=== PATIENT | male | born 1985 | race Two or more races ===

== ENCOUNTER 2020-08-31 21:24 | Observation (INO) | payer OTHER ==
[2020-08-31] MEDS ORDERED: HYDROmorphone 0.5 MG/0.5 ML SYRINGE IVP STA (21:27)
[2020-08-31] MEDS ORDERED: SODIUM CHLORIDE 0.9% 1,000 ML IV STA (21:28)
--- NOTE | 2020-08-31 21:29 | ED ---
General Adult HPI - General Stated complaint: ABD pain Time Seen by Provider: 08/31/20 21:27 - History of Present Illness Initial comments: Dictation was produced using [employer] dictation software. please excuse any grammatical, word or spelling errors. This patient was cared for during a federal and state declared state of emergency secondary to Covid 19 Chief Complaint: 34-year-old male transferred from [facility] for acute appendicitis History of Present Illness: 34-year-old male presents to the emergency department from [facility] emergency department for acute appendicitis. Patient has been having right lower quadrant symptoms and abdominal pain today. He had a computed tomography scan at [facility] showing acute appendicitis. White count 12.3. Patient no history of abdominal surgery. Last oral intake was around 1 AM today. Patient was started on Zosyn The ROS documented in this emergency department record has been reviewed and confirmed by me. Those systems with pertinent positive or negative responses have been documented in the HPI. All other systems are other negative and/or noncontributory. PHYSICAL EXAM: General Impression: Alert and oriented x3, acute distress secondary to pain HEENT: Normocephalic atraumatic, extra-ocular movements intact, pupils equal and reactive to light bilaterally, mucous membranes moist. Cardiovascular: Heart regular rate and rhythm Chest: Able to complete full sentences, no retractions, no tachypnea Abdomen: abdomen soft, right lower quadrant abdominal tenderness at McBurney's point non-distended, no organomegaly Musculoskeletal: Pulses present and equal in all extremities, no peripheral edema Motor: no focal deficits noted Neurological: CN II-XII grossly intact, no focal motor or sensory deficits noted Skin: Intact with no visualized rashes Psych: Normal affect and mood ED course: 34-year-old male presents to the emergency department from [facility] via EMS for acute appendicitis. Case was discussed with Dr. Cruz requests that patient be nothing by mouth at midnight. She is allowable for clear liquids until midnight. Patient be admitted to general surgery. - Related Data Allergies Allergy/AdvReac Type Severity Reaction Status Date / Time No Known Allergies Allergy Verified 08/31/20 21:30 Review of Systems ROS Statement: Those systems with pertinent positive or pertinent negative responses have been documented in the HPI. ROS Other: All systems not noted in ROS Statement are negative. Course Vital Signs 08/31/20 21:26 Temperature 99.4 F Pulse Rate 59 L Respiratory 16 Rate Blood Pressure 118/96 O2 Sat by Pulse 97 Oximetry Disposition Clinical Impression: Acute appendicitis Disposition: ADMITTED IP TO THIS HOSP Condition: Fair Referrals: None,Stated [Primary Care Provider] - 1-2 days Decision Time: 21:33
[2020-08-31] MEDS ORDERED: ACETAMINOPHEN TAB 325 MG TAB PO PRN (21:31)
[2020-08-31] MEDS ORDERED: ONDANSETRON 4 MG/2 ML VIAL IVP PRN (21:31)
[2020-08-31] MEDS ORDERED: NALOXONE 0.4 MG/ML 1 ML VIAL IV PRN (21:31)
[2020-08-31] MEDS ORDERED: LORazepam 2 MG/ML INJ IV STA (22:31)
[2020-08-31] MEDS: HYDROmorphone 0.5 MG/0.5 ML SYRINGE IVP PRN (23:00)
[2020-09-01] MEDS: ACETAMINOPHEN TAB 500 MG TAB PO SCH ×3 (00:39→11:01)
[2020-09-01] MEDS: PIPERACILLIN-TAZOBACTAM 3.375 GM in SODIUM CHLORIDE 0.9% 100 ML IVPB SCH ×2 (00:39→09:31)
[2020-09-01] MEDS: KETOROLAC 15 MG/ML 1 ML VIAL IVP SCH ×3 (00:40→11:01)
[2020-09-01] MEDS: HYDROmorphone 0.5 MG/0.5 ML SYRINGE IVP PRN ×3 (03:19→11:04)
--- NOTE | 2020-09-01 07:27 | P.GSHP ---
History of Present Illness H&P Date: 09/01/20 CHIEF COMPLAINT: Right lower quadrant abdominal pain with appendicitis for less than 1 day. HISTORY OF PRESENT ILLNESS: The patient is a previously healthy 34-year-old male who presents with less than 1 devin history of periumbilical with right lower quadrant abdominal pain that is crampy dull ache in nature. No reports of prior abdominal pain. He states the intensity of the pain is moderate. He presented with CT abdomen and pelvis consistent with dilated appendix suspicious for appendicitis hence general surgery admission. He was transferred from outside facility for surgical intervention. PAST MEDICAL HISTORY: See list. PAST SURGICAL HISTORY: See list. CURRENT MEDICATIONS: See list. ALLERGIES: See list. SOCIAL HISTORY: See list. FAMILY HISTORY: No Crohns disease and ulcerative colitis. REVIEW OF ORGAN SYSTEMS: CONSTITUTIONAL: Present fever, no chills. Denies recent weight loss. HEENT: Denies any trouble with vision, hearing or nosebleeds. No difficulty swallowing. Wears glasses. LYMPHATIC: The patient denies any lumps and bumps around the neck. ENDOCRINE: Denies any thyroid disorders. Denies any blood sugar glucose intolerance. RESPIRATORY: Denies shortness of breath including chronic cough. CARDIOVASCULAR: Denies history of chest pain with exertion. GASTROINTESTINAL: Denies regurgitation of bile at night as well as intermittent nausea. No blood in stools. GENITOURINARY: Denies any blood in urine or increased urinary frequency. MUSCULOSKELETAL: Denies current joint arthritis. NEUROLOGIC: Denies any numbness or tingling along the distal extremities. No seizure disorders or headaches. PSYCHIATRIC: Denies any depression or suicidal ideation. HEMATOLOGIC: Denies any abnormal bleeding or bruising. PHYSICAL EXAMINATION: VITALS: Reviewed. GENERAL: Pleasant and in no acute distress. HEENT: No sclera icterus. Extraocular movements grossly intact. Moist buccal mucosa. Head is atraumatic, normocephalic. Hears conversational speech. No nasal drainage. NECK: Supple without lymphadenopathy. No JV distention. CHEST: Non-labored respirations and equal bilateral excursions. CARDIOVASCULAR: Regular rate and rhythm. Palpable 2+ radial pulses. ABDOMEN: Soft, tender at the right lower quadrant without guarding. MUSCULOSKELETAL: No clubbing, cyanosis or edema. NEUROLOGIC: No focal or lateralizing signs. PSYCH: Appropriate affect. Alert and oriented to person, place and time. SKIN: Well perfused. Good skin turgor. ASSESSMENT: 1. Appendicitis PLAN: 1. I have discussed benefits and risks of robotic appendectomy. 2. I ordered CBC and comprehensive metabolic panel pending a repeat. 3. DVT prophylaxis with sequential compressive devices and heparin 4. Intravenous antibiotics for appendicitis Past Medical History Past Medical History: No Reported History History of Any Multi-Drug Resistant Organisms: None Reported Past Surgical History: No Surgical Hx Reported Past Psychological History: No Psychological Hx Reported Smoking Status: Current every day smoker Past Alcohol Use History: Occasional Past Drug Use History: Marijuana Medications and Allergies Home Medications Medication Instructions Recorded Confirmed Type Acetaminophen Tab [Tylenol] 1,300 mg PO ONCE PRN 08/31/20 08/31/20 History Allergies Allergy/AdvReac Type Severity Reaction Status Date / Time No Known Allergies Allergy Verified 09/01/20 07:42 Surgical - Exam Vital Signs Temp Pulse Resp BP Pulse Ox 99.4 F 59 L 16 118/96 97 08/31/20 21:26 08/31/20 21:26 08/31/20 21:26 08/31/20 21:26 08/31/20 21:26
[2020-09-01] MEDS ORDERED: IV FLUID CONTINUATION 1,000 ML IV ONE (07:37)
[2020-09-01] MEDS ORDERED: LACTATED RINGERS 1,000 ML IV ONE (07:49)
[2020-09-01] MEDS ORDERED: HEPARIN SODIUM,PORCINE 5,000 UNIT/ML 1 ML VIAL ONE (07:57)
[2020-09-01] MEDS ORDERED: ONDANSETRON 4 MG/2 ML VIAL IVP ONE (08:01)
[2020-09-01] MEDS ORDERED: HEPARIN SODIUM,PORCINE 5,000 UNIT/ML 1 ML VIAL SQ ONE (08:02)
[2020-09-01] MEDS ORDERED: DEXAMETHASONE SOD PHOSPHATE 4 MG/ML 1 ML VIAL IVP ONE (08:02)
[2020-09-01] MEDS ORDERED: PROPOFOL 10 MG/ML 20 ML VIAL IV ONE (08:46)
[2020-09-01] MEDS ORDERED: KETOROLAC 15 MG/ML 1 ML VIAL ONE (08:46)
[2020-09-01] MEDS ORDERED: GLYCOPYRROLATE 0.2 MG/ML 2 ML VIAL ONE (08:46)
[2020-09-01] MEDS ORDERED: LIDOCAINE 1% INJ 10MG/ML (20 ML MDV) ONE (08:46)
[2020-09-01] MEDS ORDERED: fentaNYL (PF) 50 MCG/ML 2 ML AMP ONE (08:46)
[2020-09-01] MEDS ORDERED: ALBUTEROL HFA INHALER INHALATION ONE (08:46)
[2020-09-01] MEDS ORDERED: SUCCINYLCHOLINE CHLORIDE 100 MG/5 ML SYR IV ONE (08:46)
[2020-09-01] MEDS ORDERED: ROCURONIUM 10 MG/ML (5 ML VIAL) IV ONE (08:46)
[2020-09-01] MEDS ORDERED: MIDAZOLAM 2 MG/2 ML VIAL ONE (08:46)
[2020-09-01] MEDS ORDERED: NEOSTIGMINE 1 MG/ML 10 ML VIAL ONE (08:46)
[2020-09-01] MEDS ORDERED: BUPIVACAIN-EPI 0.5%-1:200,000 30 ML VIAL SQ ONE ×2 (09:03→09:08)
[2020-09-01 09:20] LABS: Basophils # (A) 0.03 X 10*3/uL (0.00-0.10); Basophils % (A) 0.3 %; Eosinophils # (A) 0.27 X 10*3/uL (0.04-0.35); Eosinophils % (A) 2.6 %; HCT 44.6 % (39.6-50.0); HGB 15.3 g/dL (13.0-17.0); Lymphocytes # (A) 1.95 X 10*3/uL (0.90-5.00); Lymphocytes % (A) 18.5 %; MCH 31.7 pg (27.0-32.0); MCHC 34.3 g/dL (32.0-37.0); MCV 92.5 fL (80.0-97.0); Mean Platelet Volume 10.6 fL (9.5-12.2); Monocytes # (A) 0.99 X 10*3/uL (0.20-1.00); Monocytes % (A) 9.4 %; Neutrophils # (A) 7.25 X 10*3/uL (1.80-7.70); Neutrophils % (A) 68.8 %; Platelet Count 171 X 10*3/uL (140-440); RBC 4.82 X 10*6/uL (4.40-5.60); RDW 12.4 % (11.5-14.5); WBC 10.53 X 10*3/uL (4.50-10.00)
[2020-09-01] MEDS ORDERED: NALOXONE 0.4 MG/ML 1 ML VIAL IV PRN (09:53)
--- NOTE | 2020-09-01 09:57 | P.OP ---
Date of Procedure: 09/01/20 Description of Procedure: SURGEON: DAVION KRAUS MD Preoperative Diagnosis: 1. Acute appendicitis 2. Tobacco abuse disorder 3. Poor dentition 4. Leukocytosis Postoperative Diagnosis: 1. Acute appendicitis, retrocecal with periappendicitis without free rupture 2. Tobacco abuse disorder 3. Poor dentition 4. Leukocytosis Procedure(s) Performed: 1. Robotic-assisted daVinci Xi laparoscopic appendectomy Anesthesia: GETA, local Estimated Blood Loss (ml): 5 Pathology: other (appendix) Condition: stable Disposition: floor Operative Findings: 1. Acute appendicitis without rupture with periappendicitis, retrocecal 2. Terminal ileum unremarkable 3. Cecum unremarkable 4. No bilateral inguinal hernias 5. Thickened gallbladder wall INDICATIONS: The patient is a 34-year-old male who presents with acute appendicitis. Benefits and risks, including infection, open surgery, and ble eding for additional surgery was discussed at length. Informed consent was obtained. All questions of the patient and family were answered. DESCRIPTION: The patient was transferred to the operating room and placed in supine position. The patient had previously voided. The abdomen was then prepped and draped in standard sterile fashion as Ioban was placed along the abdomen to minimize any contamination of skin floor. After a timeout protocol was performed, attention was then brought to the left upper quadrant whereby a 0 degree 5 mm laparoscopic trocar entry was performed. The abdominal cavity was entered and insufflated to 12 mmHg pressure, which was tolerated well. Diagnostic laparoscopy demonstrated no injury to bowel, viscera or mesentery. Next a robotic 8-mm trocar was placed along the left lower quadrant, 10-cm lateral to the midline. A 12 mm port was placed along the left upper quadrant and another 8-mm port left lateral abdominal wall. Ports were placed 8 cm apart from each other including 15-20 cm away from the target anatomy of the right pelvis. The patient was then placed in Trendelenburg position, at least 7 down and right side up at least 7. The robotic da Atul XI system was primed and docked from the left side of the patient. Using atraumatic graspers and vessel sealer, the robotic system was docked and primed as described. Instruments were interchanged by the internet marketing assistant including graspers, robotic stapler and vessel sealer. Next, attention was brought to identify the cecum. A systematic view within the abdominal cavity was started with the small bowel which was unremarkable. The base of the cecum was unremarkable. The bilateral inguinal canals were unremarkable for hernias. The appendix was retrocecal coursing towards right upper quadrant behind the ascending colon with additional dissection required. The body of the appendix was moderately dilated with moderate periappendicitis. No perforation was identified. The appendix was dissected free from its surrounding tissues. Blue 45 mm robotic staple loads were fired along the base of the appendix. The staple line was hemostatic after applying Bovie cautery. Hemostasis was checked prior to undocking the robot. The robot was undocked. I re-scrubbed into the case. The specimen was removed from the abdominal cavity with an Endo Catch bag through the 12 mm trocar at the left upper quadrant. The port site fascia was less than 8 mm in size. All instruments and pneumoperitoneum were evacuated from the abdominal cavity. Local anesthetic was infiltrated to all wounds for postop analgesia. All incisions were also cleansed with diluted hydrogen peroxide. The incisions were closed with 4-0 Monocryl. Exofin glue was applied to the rest of the skin incisions. The patient had tolerated the procedure well. The patient was extubated successfully. The patient was transferred to the postanesthesia care unit in stable condition.
[2020-09-01 10:09] VITALS: RESP 16
[2020-09-01 10:51] VITALS: TEMP 98
[2020-09-01 11:20] LABS: African American GFR (CKD) 114.1 (60.0-200.0); Albumin/Globulin Ratio 2.11 (1.60-3.17); Anion Gap 7.5 mmol/L (4.00-12.00); Carbon Dioxide 23.5 mmol/L (21.6-31.8); Globulin 1.9 g/dL (1.6-3.3); Non-African American GFR(CKD) 98.5 (60.0-200.0); Total Bilirubin 1.2 mg/dL (0.3-1.2); Total Protein 5.9 g/dL (6.2-8.2)
[2020-09-01] MEDS ORDERED: ACETAMINOPHEN TAB 500 MG TAB PO SCH (12:00)
[2020-09-01 13:39] VITALS: BP 134/77; PULSE 84
--- NOTE | 2020-09-01 13:43 | P.DS ---
Providers Date of admission: 08/31/20 21:32 Expected date of discharge: 09/01/20 Attending physician: Sully Levine Primary care physician: Stated None - Discharge Diagnosis(es) (1) Acute appendicitis Current Visit: Yes Status: Acute Hospital Course: Postoperative Diagnosis: 1. Acute appendicitis, retrocecal with periappendicitis without free rupture 2. Tobacco abuse disorder 3. Leukocytosis COURSE: The patient is a 34-year-old male who presented with acute appendicitis. He underwent robotic appendectomy without complications. Postoperatively, he was voiding spontaneously. His pain was well controlled. Additionally no reports of nausea and vomiting. He was maintained on IV antibiotics postoperatively. Discharge instructions were clearly reviewed. Patient to follow-up in the office within 1 week. All questions were addressed. Procedures: Procedure(s) Performed: 1. Robotic-assisted daVinci Xi laparoscopic appendectomy Anesthesia: GETA, local Estimated Blood Loss (ml): 5 Pathology: other (appendix) Condition: stable Disposition: floor Operative Findings: 1. Acute appendicitis without rupture with periappendicitis, retrocecal 2. Terminal ileum unremarkable 3. Cecum unremarkable 4. No bilateral inguinal hernias 5. Thickened gallbladder wall Patient Condition at Discharge: Good Plan - Discharge Summary Discharge Rx Participant: Yes New Discharge Prescriptions: New Ibuprofen [Motrin] 600 mg PO Q8HR PRN #30 tab PRN Reason: Pain Acetaminophen Tab [Tylenol Tab] 1,000 mg PO Q6HR PRN #30 tablet PRN Reason: Pain Continue Acetaminophen Tab [Tylenol] 1,300 mg PO ONCE PRN PRN Reason: Pain Discharge Medication List Acetaminophen Tab [Tylenol] 1,300 mg PO ONCE PRN 08/31/20 [History] Acetaminophen Tab [Tylenol Tab] 1,000 mg PO Q6HR PRN #30 tablet 09/01/20 [Rx] Ibuprofen [Motrin] 600 mg PO Q8HR PRN #30 tab 09/01/20 [Rx] Follow up Appointment(s)/Referral(s): Sully Levine MD [STAFF PHYSICIAN] - 09/05/20 5:00 pm None,Stated [Primary Care Provider] - 1-2 days Patient Instructions/Handouts: Laparoscopic Appendectomy (DC) Activity/Diet/Wound Care/Special Instructions: Using antibacterial soap. No lifting over 10 pounds 2 weeks, Feb 25 May shower. No bathtub soaks for 2 weeks, Sep 14 Wear abdominal binder daily for comfort except for showering. Use ice along incisions for today to prevent swelling. Discharge Disposition: HOME SELF-CARE
[2020-09-02] MEDS ORDERED: ENOXAPARIN 30 MG/0.3 ML SYRINGE SQ SCH (09:00)
== END 2020-09-01 15:00 | disposition home or self-care (01) ==
LOC: EC 21:24 → 6NMEDSUR 21:32 → 4SSUR 09-01 05:23
PROVIDERS: ADMIT Surgery Plastic and Reconstructive Surgery; ATTEND Surgery Plastic and Reconstructive Surgery
DX: K35.80 Unspecified acute appendicitis (principal); F17.200 Nicotine dependence, unspecified, uncomplicated; Z20.822 Contact with and (suspected) exposure to COVID-19
CPT/HCPCS: 44970; S2900; 80053; 85025; 87635; 88304; 96374; 96375; 96376; 99285

== ENCOUNTER 2020-11-10 17:50 | Inpatient (IN) | payer OTHER ==
[2020-11-10 18:38] LABS: HCT 48.7 % (39.0-53.0); HGB 17.4 gm/dL (13.0-17.5); MCH 32.6 pg (25.0-35.0); MCHC 35.7 g/dL (31.0-37.0); MCV 91.4 fL (80.0-100.0); Mean Platelet Volume 7.3; Neutrophils % (A) 62 %; Platelet Count 190 k/uL (150-450); RBC 5.32 m/uL (4.30-5.90); RDW 12.3 % (11.5-15.5); WBC 9.8 k/uL (3.8-10.6)
[2020-11-10 18:39] LABS: Basophils # (A) 0.1 k/uL (0-0.2); Basophils % (A) 1 %; Eosinophils # (A) 0.4 k/uL (0-0.7); Eosinophils % (A) 4 %; Lymphocytes # (A) 2.5 k/uL (1.0-4.8); Lymphocytes % (A) 26 %; Monocytes # (A) 0.6 k/uL (0-1.0); Monocytes % (A) 6 %; Neutrophils # (A) 6.1 k/uL (1.3-7.7)
[2020-11-10] MEDS ORDERED: SODIUM CHLORIDE 0.9% 2,000 ML IV ONE (18:43)
[2020-11-10] MEDS ORDERED: MORPHINE SULFATE 4 MG/ML SYRINGE IVP STA ×2 (18:43→18:44)
[2020-11-10] MEDS ORDERED: ONDANSETRON 4 MG/2 ML VIAL IVP STA (18:44)
[2020-11-10 18:48] LABS: ALT 39 U/L (4-49); AST 33 U/L (17-59); African American GFR (CKD) >90 (>60 ml/min/1.73 sqM); Albumin 4.3 g/dL (3.5-5.0); Alkaline Phosphatase 61 U/L (38-126); Anion Gap 9 mmol/L; Blood Urea Nitrogen 10 mg/dL (9-20); Calcium 8.9 mg/dL (8.4-10.2); Carbon Dioxide 25 mmol/L (22-30); Chloride 105 mmol/L (98-107); Glucose 89 mg/dL (74-99); Lipase 597 U/L (23-300); Non-African American GFR(CKD) >90 (>60 ml/min/1.73 sqM); Potassium 4.3 mmol/L (3.5-5.1); Sodium 139 mmol/L (137-145); Total Bilirubin 0.4 mg/dL (0.2-1.3); Total Protein 7.5 g/dL (6.3-8.2)
[2020-11-10] MEDS ORDERED: HYDROmorphone 1 MG/ML 1 ML SYRINGE IVP STA (19:32)
--- NOTE | 2020-11-10 19:43 | US ---
EXAMINATION TYPE: US gallbladder DATE OF EXAM: 11/10/2020 COMPARISON: EXAMINATION TYPE: US gallbladder DATE OF EXAM: 11/10/2020 COMPARISON: None CLINICAL HISTORY: abd pain. RUQ pain x 2 DAYS, Nausea and vomiting, diarrhea EXAM MEASUREMENTS: Liver Length: 14.3 cm Gallbladder Wall: 0.1 cm CBD: 0.3 cm Right Kidney: 10.3 x 6.4 x 5.1 cm Pancreas: Visualized portions normal. Body and tail obscured by bowel gas Liver: Normal. Gallbladder: No cholelithiasis, gallbladder wall thickening, or pericholecystic edema. Clinical Engineering Director reports positive sonographic De Los Santos sign. CBD: Normal. Right Kidney: No hydronephrosis. IMPRESSION: Clinical Engineering Director reports positive sonographic De Los Santos sign. However there are no other signs of acute pranav cystitis. Recommend correlation with physical exam. If there is clinical concern for acute cholecysti tis, recommend nuclear medicine HIDA scan.
[2020-11-10 20:32] LABS: Appearance,Urine Clear (Clear); Bilirubin,Urine Negative (Negative); Blood,Urine Negative (Negative); Color,Urine Yellow; Glucose,Urine (UA) Negative (Negative); Ketones,Urine Negative (Negative); Leukocyte Esterase,Urine Negative (Negative); Nitrite,Urine Negative (Negative); Protein,Urine Negative (Negative); Specific Gravity,Urine 1.022 (1.001-1.035); Urobilinogen,Urine <2.0 mg/dL (<2.0)
--- NOTE | 2020-11-10 21:04 | CT ---
EXAMINATION TYPE: CT abdomen pelvis w con DATE OF EXAM: 11/10/2020 COMPARISON: Same day gallbladder ultrasound HISTORY: PAIN CT DLP: 1404.9 mGycm Automated exposure control for dose reduction was used. TECHNIQUE: Helical acquisition of images was performed from the lung bases through the pelvis. CONTRAST: Performed without Oral Contrast and with IV Contrast, patient injected with 100 mL of Isovue 300. FINDINGS: LUNG BASES: Normal. LIVER: Normal. BILIARY SYSTEM: Normal. PANCREAS: Normal. SPLEEN: Normal. ADRENALS: Normal. KIDNEYS: Normal. BOWEL: No obstruction or thickening. Colonic diverticulosis. No acute diverticulitis. Patient appear s status post appendectomy. PERITONEUM: No pneumoperitoneum. No free fluid. LYMPH NODES: No lymphadenopathy. PELVIS: Normal. VASCULATURE: No abdominal aortic aneurysm. MUSCULOSKELETAL: No acute osseous normality. IMPRESSION: No acute findings to explain patient's abdominal pain.
[2020-11-10] MEDS ORDERED: NALOXONE 0.4 MG/ML 1 ML VIAL IV PRN (21:50)
--- NOTE | 2020-11-10 21:56 | ED ---
Abdominal Pain HPI - General Chief Complaint: Abdominal Pain Stated Complaint: Abd Pain Time Seen by Provider: 11/10/20 17:55 Source: patient Mode of arrival: ambulatory Limitations: no limitations - History of Present Illness Initial Comments: 35-year-old previously healthy male presents emergency room with right upper quadrant pain. Patient states that his pain started yesterday. Located in the right upper quadrant. Denies any provocative factors. States the pain has been constant. He has not attempted to take any medications at home for her symptoms. Has associated nausea, vomiting and diarrhea. Denies any sick contacts with similar symptoms. No fevers or chills. Denies history of alcohol use. Patient is status post appendectomy. No other alleviating, Perceptin or modifying factors - Related Data Previous Rx's Medication Instructions Recorded HYDROcodone/APAP 5-325MG [[place] 1 tab PO Q6HR PRN 3 Days #12 tab 11/14/20 5-325] Allergies Allergy/AdvReac Type Severity Reaction Status Date / Time No Known Allergies Allergy Verified 11/10/20 19:36 Review of Systems ROS Statement: Those systems with pertinent positive or pertinent negative responses have been documented in the HPI. ROS Other: All systems not noted in ROS Statement are negative. Past Medical History Past Medical History: No Reported History History of Any Multi-Drug Resistant Organisms: None Reported Past Surgical History: Appendectomy Past Psychological History: No Psychological Hx Reported Smoking Status: Current every day smoker Past Alcohol Use History: Occasional Past Drug Use History: Marijuana - Past Family History Father Family Medical History: No Reported History General Exam Limitations: no limitations General appearance: alert, in distress Head exam: Present: atraumatic, normocephalic, normal inspection Eye exam: Present: normal appearance, PERRL, EOMI. Absent: scleral icterus, conjunctival injection, periorbital swelling ENT exam: Present: normal exam, mucous membranes moist Neck exam: Present: normal inspection. Absent: tenderness, meningismus, lymphadenopathy Respiratory exam: Present: normal lung sounds bilaterally. Absent: respiratory distress, wheezes, rales, rhonchi, stridor Cardiovascular Exam: Present: regular rate, normal rhythm, normal heart sounds. Absent: systolic murmur, diastolic murmur, rubs, gallop, clicks GI/Abdominal exam: Present: soft, tenderness (ruq), normal bowel sounds. Absent: distended, guarding, rebound, rigid Extremities exam: Present: normal inspection, full ROM, normal capillary refill. Absent: tenderness, pedal edema, joint swelling, calf tenderness Back exam: Present: normal inspection Neurological exam: Present: alert, oriented X3, CN II-XII intact Psychiatric exam: Present: normal affect, normal mood Skin exam: Present: warm, dry, intact, normal color. Absent: rash Course Vital Signs 11/10/20 11/10/20 11/10/20 17:54 19:30 22:00 Temperature 98.3 F 97.9 F 97.8 F Pulse Rate 103 H 50 L 41 L Respiratory 18 18 18 Rate Blood Pressure 111/79 118/70 102/70 O2 Sat by Pulse 99 99 96 Oximetry Medical Decision Making - Medical Decision Making Upon arrival patient is placed in room 27. Thorough history and physical exam was performed. IV is established. Laboratory studies were conducted. Patient given informal grams of morphine for pain control. Lab studies demonstrate a lipase of 597. Ultrasound demonstrates no acute findings. Patient is reevaluated and continues to have uncontrolled pain. He was given [address] abdomen and pelvis is performed which demonstrates no acute process. Patient is reevaluated states he has had no improvement in his abdominal pain. Because of his intractable pain I did recommend hospital admission in order to recheck his lipase level in the morning and for pain control. I will consult Dr. Bloom for his right upper quadrant abdominal pain. I spoke with Dr. cyr who agreed to admission. Patient awaiting bed on the floor - Lab Data Result diagrams: 11/11/20 06:17 11/14/20 07:16 Lab Results 11/10/20 11/10/20 11/10/20 Range/Units 18:27 18:27 18:27 WBC 9.8 (3.8-10.6) k/uL RBC 5.32 (4.30-5.90) m/uL Hgb 17.4 (13.0-17.5) gm/dL Hct 48.7 (39.0-53.0) % MCV 91.4 (80.0-100.0) fL MCH 32.6 (25.0-35.0) pg MCHC 35.7 (31.0-37.0) g/dL RDW 12.3 (11.5-15.5) % Plt Count 190 (150-450) k/uL MPV 7.3 Neutrophils % 62 % Lymphocytes % 26 % Monocytes % 6 % Eosinophils % 4 % Basophils % 1 % Neutrophils # 6.1 (1.3-7.7) k/uL Lymphocytes # 2.5 (1.0-4.8) k/uL Monocytes # 0.6 (0-1.0) k/uL Eosinophils # 0.4 (0-0.7) k/uL Basophils # 0.1 (0-0.2) k/uL Sodium 139 (137-145) mmol/L Potassium 4.3 (3.5-5.1) mmol/L Chloride 105 (98-107) mmol/L Carbon Dioxide 25 (22-30) mmol/L Anion Gap 9 mmol/L BUN 10 (9-20) mg/dL Creatinine 0.95 (0.66-1.25) mg/dL Est GFR (CKD-EPI)AfAm >90 (>60 ml/min/1.73 sqM) Est GFR (CKD-EPI)NonAf >90 (>60 ml/min/1.73 sqM) Glucose 89 (74-99) mg/dL Plasma Lactic Acid Daryn 1.2 (0.7-2.0) mmol/L Calcium 8.9 (8.4-10.2) mg/dL Total Bilirubin 0.4 (0.2-1.3) mg/dL AST 33 (17-59) U/L ALT 39 (4-49) U/L Alkaline Phosphatase 61 (38-126) U/L Total Protein 7.5 (6.3-8.2) g/dL Albumin 4.3 (3.5-5.0) g/dL Lipase 597 H (23-300) U/L Urine Color Urine Appearance (Clear) Urine pH (5.0-8.0) Ur Specific [place] (1.001-1.035) Urine Protein (Negative) Urine Glucose (UA) (Negative) Urine Ketones (Negative) Urine Blood (Negative) Urine Nitrite (Negative) Urine Bilirubin (Negative) Urine Urobilinogen (<2.0) mg/dL Ur Leukocyte Esterase (Negative) Coronavirus (PCR) (Not Detectd) 11/10/20 11/10/20 11/11/20 Range/Units 18:27 20:19 06:17 WBC 8.2 (3.8-10.6) k/uL RBC 5.24 (4.30-5.90) m/uL Hgb 16.4 (13.0-17.5) gm/dL Hct 49.1 (39.0-53.0) % MCV 93.6 (80.0-100.0) fL MCH 31.3 (25.0-35.0) pg MCHC 33.4 (31.0-37.0) g/dL RDW 13.0 (11.5-15.5) % Plt Count 176 (150-450) k/uL MPV 7.8 Neutrophils % 51 % Lymphocytes % 36 % Monocytes % 6 % Eosinophils % 5 % Basophils % 1 % Neutrophils # 4.2 (1.3-7.7) k/uL Lymphocytes # 3.0 (1.0-4.8) k/uL Monocytes # 0.5 (0-1.0) k/uL Eosinophils # 0.4 (0-0.7) k/uL Basophils # 0.1 (0-0.2) k/uL Sodium (137-145) mmol/L Potassium (3.5-5.1) mmol/L Chloride (98-107) mmol/L Carbon Dioxide (22-30) mmol/L Anion Gap mmol/L BUN (9-20) mg/dL Creatinine (0.66-1.25) mg/dL Est GFR (CKD-EPI)AfAm (>60 ml/min/1.73 sqM) Est GFR (CKD-EPI)NonAf (>60 ml/min/1.73 sqM) Glucose (74-99) mg/dL Plasma Lactic Acid Daryn (0.7-2.0) mmol/L Calcium (8.4-10.2) mg/dL Total Bilirubin (0.2-1.3) mg/dL AST (17-59) U/L ALT (4-49) U/L Alkaline Phosphatase (38-126) U/L Total Protein (6.3-8.2) g/dL Albumin (3.5-5.0) g/dL Lipase (23-300) U/L Urine Color Yellow Urine Appearance Clear (Clear) Urine pH 6.0 (5.0-8.0) Ur Specific [place] 1.022 (1.001-1.035) Urine Protein Negative (Negative) Urine Glucose (UA) Negative (Negative) Urine Ketones Negative (Negative) Urine Blood Negative (Negative) Urine Nitrite Negative (Negative) Urine Bilirubin Negative (Negative) Urine Urobilinogen <2.0 (<2.0) mg/dL Ur Leukocyte Esterase Negative (Negative) Coronavirus (PCR) Not Detected (Not Detectd) 11/11/20 Range/Units 06:17 WBC (3.8-10.6) k/uL RBC (4.30-5.90) m/uL Hgb (13.0-17.5) gm/dL Hct (39.0-53.0) % MCV (80.0-100.0) fL MCH (25.0-35.0) pg MCHC (31.0-37.0) g/dL RDW (11.5-15.5) % Plt Count (150-450) k/uL MPV Neutrophils % % Lymphocytes % % Monocytes % % Eosinophils % % Basophils % % Neutrophils # (1.3-7.7) k/uL Lymphocytes # (1.0-4.8) k/uL Monocytes # (0-1.0) k/uL Eosinophils # (0-0.7) k/uL Basophils # (0-0.2) k/uL Sodium 140 (137-145) mmol/L Potassium 4.6 (3.5-5.1) mmol/L Chloride 108 H (98-107) mmol/L Carbon Dioxide 27 (22-30) mmol/L Anion Gap 5 mmol/L BUN 9 (9-20) mg/dL Creatinine 0.91 (0.66-1.25) mg/dL Est GFR (CKD-EPI)AfAm >90 (>60 ml/min/1.73 sqM) Est GFR (CKD-EPI)NonAf >90 (>60 ml/min/1.73 sqM) Glucose 78 (74-99) mg/dL Plasma Lactic Acid Daryn (0.7-2.0) mmol/L Calcium 8.1 L (8.4-10.2) mg/dL Total Bilirubin (0.2-1.3) mg/dL AST (17-59) U/L ALT (4-49) U/L Alkaline Phosphatase (38-126) U/L Total Protein (6.3-8.2) g/dL Albumin (3.5-5.0) g/dL Lipase (23-300) U/L Urine Color Urine Appearance (Clear) Urine pH (5.0-8.0) Ur Specific [place] (1.001-1.035) Urine Protein (Negative) Urine Glucose (UA) (Negative) Urine Ketones (Negative) Urine Blood (Negative) Urine Nitrite (Negative) Urine Bilirubin (Negative) Urine Urobilinogen (<2.0) mg/dL Ur Leukocyte Esterase (Negative) Coronavirus (PCR) (Not Detectd) Disposition Clinical Impression: Abdominal pain, Elevated lipase Disposition: ADMITTED IP TO THIS [facility] Condition: Stable Is patient prescribed a controlled substance at d/c from ED?: No Decision to Admit Reason: Admit from EC Decision Date: 11/10/20 Decision Time: 21:50
[2020-11-10] MEDS: HYDROmorphone 1 MG/ML 1 ML SYRINGE IVP PRN (22:11)
[2020-11-10] MEDS: SODIUM CHLORIDE 0.9% 1,000 ML IV SCH (22:12)
[2020-11-10] MEDS ORDERED: NICOTINE 21MG/24HR PATCH TRANSDERM STA (22:57)
[2020-11-11] MEDS: HYDROmorphone 1 MG/ML 1 ML SYRINGE IVP PRN ×5 (03:15→22:38)
[2020-11-11 07:28] LABS: Basophils # (A) 0.1 k/uL (0-0.2); Basophils % (A) 1 %; Eosinophils # (A) 0.4 k/uL (0-0.7); Eosinophils % (A) 5 %; HCT 49.1 % (39.0-53.0); HGB 16.4 gm/dL (13.0-17.5); Lymphocytes % (A) 36 %; MCH 31.3 pg (25.0-35.0); MCHC 33.4 g/dL (31.0-37.0); MCV 93.6 fL (80.0-100.0); Mean Platelet Volume 7.8; Monocytes # (A) 0.5 k/uL (0-1.0); Monocytes % (A) 6 %; Neutrophils # (A) 4.2 k/uL (1.3-7.7); Neutrophils % (A) 51 %; Platelet Count 176 k/uL (150-450); RBC 5.24 m/uL (4.30-5.90); WBC 8.2 k/uL (3.8-10.6)
[2020-11-11 07:41] LABS: African American GFR (CKD) >90 (>60 ml/min/1.73 sqM); Anion Gap 5 mmol/L; Blood Urea Nitrogen 9 mg/dL (9-20); Calcium 8.1 mg/dL (8.4-10.2); Carbon Dioxide 27 mmol/L (22-30); Chloride 108 mmol/L (98-107); Glucose 78 mg/dL (74-99); Non-African American GFR(CKD) >90 (>60 ml/min/1.73 sqM); Sodium 140 mmol/L (137-145)
[2020-11-11] MEDS: FAMOTIDINE 20 MG/2 ML VIAL IV SCH ×2 (07:41→22:37)
[2020-11-11] MEDS: HEPARIN SODIUM,PORCINE/PF 5,000 UNIT/0.5 ML SYRINGE SQ SCH ×2 (07:42→22:37)
[2020-11-11] MEDS: SODIUM CHLORIDE 0.9% 1,000 ML IV SCH ×2 (07:42→18:14)
[2020-11-11 07:58] LABS: Potassium 4.6 mmol/L (3.5-5.1)
--- NOTE | 2020-11-11 13:20 | P.GSCN ---
History of Present Illness Consult date: 11/11/20 Reason for Consult: Right upper quadrant pain History of present illness: This a 35-year-old male with history of right-sided abdominal pain. Patient states she's had pain for the last several days her quadrant. He is pointing to right subcostal margin. His ultrasound of the gallbladder is negative. Past Medical History Past Medical History: No Reported History History of Any Multi-Drug Resistant Organisms: None Reported Past Surgical History: Appendectomy Past Psychological History: No Psychological Hx Reported Smoking Status: Current every day smoker Past Alcohol Use History: Occasional Past Drug Use History: Marijuana - Past Family History Father Family Medical History: No Reported History Medications and Allergies Home Medications Medication Instructions Recorded Confirmed Type No Known Home Medications 11/10/20 11/10/20 History Allergies Allergy/AdvReac Type Severity Reaction Status Date / Time No Known Allergies Allergy Verified 11/10/20 19:36 Surgical - Exam Vital Signs Temp Pulse Resp BP Pulse Ox 98.3 F 103 H 18 111/79 99 11/10/20 17:54 11/10/20 17:54 11/10/20 17:54 11/10/20 17:54 11/10/20 17:54 - General well developed, well nourished, no distress - Eyes PERRL - ENT normal pinna - Neck no masses - Respiratory normal expansion - Cardiovascular Rhythm: regular - Abdomen Mild right upper quadrant tenderness. There is no rebound or guarding. Abdomen: soft Results - Labs 11/11/20 06:17 11/11/20 06:17 Abnormal Lab Results - Last 24 Hours (Table) 11/10/20 11/11/20 Range/Units 18:27 06:17 Chloride 108 H (98-107) mmol/L Calcium 8.1 L (8.4-10.2) mg/dL Lipase 597 H (23-300) U/L Diabetes panel 11/10/20 11/11/20 Range/Units 18:27 06:17 Sodium 139 140 (137-145) mmol/L Potassium 4.3 4.6 (3.5-5.1) mmol/L Chloride 105 108 H (98-107) mmol/L Carbon Dioxide 25 27 (22-30) mmol/L BUN 10 9 (9-20) mg/dL Creatinine 0.95 0.91 (0.66-1.25) mg/dL Glucose 89 78 (74-99) mg/dL Calcium 8.9 8.1 L (8.4-10.2) mg/dL AST 33 (17-59) U/L ALT 39 (4-49) U/L Alkaline Phosphatase 61 (38-126) U/L Total Protein 7.5 (6.3-8.2) g/dL Albumin 4.3 (3.5-5.0) g/dL Calcium panel 11/10/20 11/11/20 Range/Units 18:27 06:17 Calcium 8.9 8.1 L (8.4-10.2) mg/dL Albumin 4.3 (3.5-5.0) g/dL Pituitary panel 11/10/20 11/11/20 Range/Units 18:27 06:17 Sodium 139 140 (137-145) mmol/L Potassium 4.3 4.6 (3.5-5.1) mmol/L Chloride 105 108 H (98-107) mmol/L Carbon Dioxide 25 27 (22-30) mmol/L BUN 10 9 (9-20) mg/dL Creatinine 0.95 0.91 (0.66-1.25) mg/dL Glucose 89 78 (74-99) mg/dL Calcium 8.9 8.1 L (8.4-10.2) mg/dL Adrenal panel 11/10/20 11/11/20 Range/Units 18:27 06:17 Sodium 139 140 (137-145) mmol/L Potassium 4.3 4.6 (3.5-5.1) mmol/L Chloride 105 108 H (98-107) mmol/L Carbon Dioxide 25 27 (22-30) mmol/L BUN 10 9 (9-20) mg/dL Creatinine 0.95 0.91 (0.66-1.25) mg/dL Glucose 89 78 (74-99) mg/dL Calcium 8.9 8.1 L (8.4-10.2) mg/dL Total Bilirubin 0.4 (0.2-1.3) mg/dL AST 33 (17-59) U/L ALT 39 (4-49) U/L Alkaline Phosphatase 61 (38-126) U/L Total Protein 7.5 (6.3-8.2) g/dL Albumin 4.3 (3.5-5.0) g/dL Assessment and Plan Assessment: Right upper quadrant pain. Ultrasound was negative for gallstones. Patient w ill have a HIDA scan to evaluate for possible biliary dysfunction.
[2020-11-11] MEDS: ONDANSETRON 4 MG/2 ML VIAL IVP PRN (16:44)
[2020-11-11] MEDS ORDERED: NICOTINE 21MG/24HR PATCH TRANSDERM STA (16:46)
--- NOTE | 2020-11-11 16:56 | NM ---
EXAMINATION TYPE: NM hepatobiliary w EF DATE OF EXAM: 11/11/2020 COMPARISON: NONE HISTORY: TECHNIQUE: After the intravenous administration of 5.2 mCi Tc 99m Mebrofenin hepatobiliary scintigrap hy is performed. Immediate images post injection. FINDINGS: There is satisfactory initial accumulation of tracer by the liver. The gallbladder is visualized wit hin 8 minutes. The small bowel activity is noted within 14 minutes. At one hour 8 ounces of oral en sure plus is given to mimic CCK and gallbladder ejection fraction is calculated at 82% %, in the norm al range. Therefore there is no scintigraphic evidence of cystic or common bile duct obstruction to suggest acute cholecystitis or gallbladder dyskinesia. IMPRESSION: There is no focal liver defect. There is normal gallbladder ejection fraction of 82%.
--- NOTE | 2020-11-12 00:34 | P.HPIM ---
History of Present Illness H&P Date: 11/11/20 Chief Complaint: Abdominal pain Patient is a 35-year-old male with a known history of everyday smoker, marijuana use occasionally, history of renal stones and history of appendectomy presents to ER with the complaints of right upper quadrant abdominal pain for the past 2 days. On the first day patient felt sick and was having nausea and diarrhea. On the second day patient was having increasing pain along with diarrhea. Patient presented to ER for further evaluation. Pain has been constant stabbing type. Associate with nausea and vomiting and diarrhea. Denies any fever or chills. No cough or sputum production. No sick contacts or recent travel. Denied any unusual food intake. CT of the abdomen pelvis showed no acute findings to explain patient's abdominal pain. Ultrasound of the gallbladder showed sonographic positive De Los Santos sign. However there is no other signs of acute cholecystitis. Recommend correlation with physical exam and nuclear medicine HIDA scan. Lab data showed lipase level 597 bilirubin 0.4 liver enzymes are not elevated sodium 139 potassium 4.3 BUN 10 and creatinine 0.95 WBC 9.8 hemoglobin 17.4 and platelets 190 Urinalysis is negative for infection COVID-19 PCR not detected Patient has been afebrile. Review of Systems Constitutional: Patient denies any fever or chills . No generalized weakness or weight loss. Abdomen: patient does have nausea vomiting and diarrhea and right upper quadrant abdominal pain. Cardiovascular: Patient denies any chest pain or short of breath no palpitations. Respiratory: patient denied any cough or sputum production. No shortness of breath Neurologic: Patient denied any numbness or tingling headache. Musculoskeletal: Patient denies any complaints of joint swelling or deformity. Skin: Negative Psychiatric: Negative Endocrine: No heat or cold intolerance. No recent weight gain. Genitourinary: No dysuria or hematuria. All other 14 point ROS negative except the above Past Medical History Past Medical History: No Reported History History of Any Multi-Drug Resistant Organisms: None Reported Past Surgical History: Appendectomy Past Psychological History: No Psychological Hx Reported Smoking Status: Current every day smoker Past Alcohol Use History: Occasional Past Drug Use History: Marijuana - Past Family History Father Family Medical History: No Reported History Medications and Allergies Home Medications Medication Instructions Recorded Confirmed Type No Known Home Medications 11/10/20 11/10/20 History Allergies Allergy/AdvReac Type Severity Reaction Status Date / Time No Known Allergies Allergy Verified 11/10/20 19:36 Physical Exam Vitals: Vital Signs Temp Pulse Pulse Resp BP BP Pulse Ox 11/11/20 08:00 52 L 16 11/11/20 07:20 97.6 F 52 L 16 128/79 98 11/11/20 02:06 97.4 F L 61 14 117/86 97 11/10/20 23:25 97.6 F 39 L 16 117/76 98 11/10/20 23:09 97.8 F 40 L 18 109/64 96 11/10/20 22:00 97.8 F 41 L 18 102/70 96 11/10/20 19:30 97.9 F 50 L 18 118/70 99 11/10/20 17:54 98.3 F 103 H 18 111/79 99 Intake and Output 11/10/20 11/11/20 11/11/20 22:59 06:59 14:59 Other: Voiding Method Toilet Weight 120.202 kg 120.202 kg PHYSICAL EXAMINATION: Patient is lying in the bed comfortably, no acute distress, awake alert and oriented.. HEENT: Normocephalic. Neck is supple. Pupils reactive. Nostrils clear. Oral cavity is moist. Ears reveal no drainage. Neck reveals no JVD, carotid bruits, or thyromegaly. CHEST EXAMINATION: Trachea is central. Symmetrical expansion. Lung garcia clear to auscultation and percussion. CARDIAC: Normal S1, S2 with no gallops. No murmurs ABDOMEN: Soft. RUQ tenderness, Bowel sounds normal. No organomegaly. No abdominal bruits. Extremities: reveal no edema. No clubbing or cyanosis Neurologically awake, alert, oriented x3 with well-coordinated movements. No focal deficits noted Skin: No rash or skin lesions. Psychiatric: Coperative. Nonsuicidal Musculoskeletal: No joint swelling or deformity. Normal range of motion. Results CBC & Chem 7: 11/11/20 06:17 11/11/20 06:17 Labs: Abnormal Lab Results - Last 24 Hours (Table) 11/10/20 11/11/20 Range/Units 18:27 06:17 Chloride 108 H (98-107) mmol/L Calcium 8.1 L (8.4-10.2) mg/dL Lipase 597 H (23-300) U/L Thrombosis Risk Factor Assmnt - DVT/VTE Prophylaxis DVT/VTE Prophylaxis: Pharmacologic Prophylaxis ordered - Choose All That Apply Any of the Below Risk Factors Present?: No Assessment and Plan Assessment: Right upper quadrant pain. Ultrasound no evidence of acute cholecystitis. HIDA scan was ordered. History of nephrolithiasis Occasional marijuana use Currently everyday smoker History of appendectomy DVT prophylaxis with heparin subcu Plan: Patient will be continued on IV hydration with normal saline. Symptomatic management for nausea and vomiting. Continue with GI and DVT prophylaxis. general surgery has seen the patient and recommends HIDA scan. Continue to follow closely. Chronic pain management with Dilaudid.
[2020-11-12] MEDS: ONDANSETRON 4 MG/2 ML VIAL IVP PRN (04:25)
[2020-11-12] MEDS: HYDROmorphone 1 MG/ML 1 ML SYRINGE IVP PRN ×6 (04:25→21:46)
[2020-11-12] MEDS: SODIUM CHLORIDE 0.9% 1,000 ML IV SCH ×2 (04:32→16:54)
[2020-11-12] MEDS: FAMOTIDINE 20 MG/2 ML VIAL IV SCH ×2 (07:51→21:45)
[2020-11-12] MEDS: HEPARIN SODIUM,PORCINE/PF 5,000 UNIT/0.5 ML SYRINGE SQ SCH ×2 (07:51→21:45)
[2020-11-12] MEDS ORDERED: NICOTINE 21MG/24HR PATCH TRANSDERM STA (09:59)
[2020-11-12] MEDS ORDERED: KETOROLAC 15 MG/ML 1 ML VIAL IVP STA (11:35)
--- NOTE | 2020-11-12 15:37 | P.PN ---
Progress Note - Text Progress Note Date: 11/12/20 Patient'scomplaints of right quadrant pain. His HIDA scan shows evidence of a hyperkinetic gallbladder with 82% ejection fraction On exam vitals are stable. Abdomen soft. There is marked tenderness in the right upper quadrant. Patient be scheduled for laparoscopic scopic cholecystectomy in the a.m..
[2020-11-13] MEDS: SODIUM CHLORIDE 0.9% 1,000 ML IV SCH ×3 (00:39→19:35)
[2020-11-13] MEDS: HYDROmorphone 1 MG/ML 1 ML SYRINGE IVP PRN ×6 (00:42→22:52)
--- NOTE | 2020-11-13 01:59 | P.PN ---
Subjective Progress Note Date: 11/12/20 Patient is a 35-year-old male with a known history of everyday smoker, marijuana use occasionally, history of renal stones and history of appendectomy presents to ER with the complaints of right upper quadrant abdominal pain for the past 2 days. On the first day patient felt sick and was having nausea and diarrhea. On the second day patient was having increasing pain along with diarrhea. Patient presented to ER for further evaluation. Pain has been constant stabbing type. Associate with nausea and vomiting and diarrhea. Denies any fever or chills. No cough or sputum production. No sick contacts or recent travel. Denied any unusual food intake. CT of the abdomen pelvis showed no acute findings to explain patient's abdominal pain. Ultrasound of the gallbladder showed sonographic positive De Los Santos sign. However there is no other signs of acute cholecystitis. Recommend correlation with ph ysical exam and nuclear medicine HIDA scan. Lab data showed lipase level 597 bilirubin 0.4 liver enzymes are not elevated sodium 139 potassium 4.3 BUN 10 and creatinine 0.95 WBC 9.8 hemoglobin 17.4 and platelets 190 Urinalysis is negative for infection COVID-19 PCR not detected Patient has been afebrile. 11/12/2020 Patient is currently lying in bed still complaining of right upper quadrant pain. No fever no chills. Currently on pain management. HIDA scan showed hyperkinetic gallbladder with 82% ejection fraction. General surgery recommends cholecystectomy which is scheduled for tomorrow. Current medications reviewed. Objective - Vital Signs Vital signs: Vital Signs Temp 97.9 F 11/12/20 20:00 Pulse 82 11/12/20 20:00 Resp 18 11/12/20 20:00 BP 147/82 11/12/20 20:00 Pulse Ox 99 11/12/20 20:00 Intake & Output 11/12/20 11/12/20 11/13/20 06:59 18:59 06:59 Intake Total 800 Output Total 125 Balance 675 Intake: Oral 800 Output: Urine 125 Other: Voiding Method Toilet # Voids 1 1 1 - Exam PHYSICAL EXAMINATION: Patient is lying in the bed comfortably, no acute distress, awake alert and oriented.. HEENT: Normocephalic. Neck is supple. Pupils reactive. Nostrils clear. Oral cavity is moist. Ears reveal no drainage. Neck reveals no JVD, carotid bruits, or thyromegaly. CHEST EXAMINATION: Trachea is central. Symmetrical expansion. Lung garcia clear to auscultation and percussion. CARDIAC: Normal S1, S2 with no gallops. No murmurs ABDOMEN: Soft. RUQ tenderness, Bowel sounds normal. No organomegaly. No abdominal bruits. Extremities: reveal no edema. No clubbing or cyanosis Neurologically awake, alert, oriented x3 with well-coordinated movements. No focal deficits noted Skin: No rash or skin lesions. Psychiatric: Coperative. Nonsuicidal Musculoskeletal: No joint swelling or deformity. Normal range of motion. - Labs CBC & Chem 7: 11/11/20 06:17 11/11/20 06:17 Assessment and Plan Assessment: Right upper quadrant pain. Ultrasound no evidence of acute cholecystitis. HIDA scan Showed hyperkinetic gallbladder. With EF 82%.. History of nephrolithiasis Occasional marijuana use Currently everyday smoker History of appendectomy DVT prophylaxis with heparin subcu Plan: Patient will be continued on IV hydration with normal saline. Symptomatic management for nausea and vomiting. Continue with GI and DVT prophylaxis. general surgery has seen the patient and recommends HIDA scan. HIDA scan Showed hyperkinetic gallbladder. With EF 82%.. Patient is scheduled for laparoscopic cholecystectomy tomorrow. Time with Patient: Greater than 30
[2020-11-13] MEDS: NICOTINE 21MG/24HR PATCH TRANSDERM SCH (07:51)
[2020-11-13] MEDS: FAMOTIDINE 20 MG/2 ML VIAL IV SCH ×2 (07:51→19:35)
[2020-11-13] MEDS: HEPARIN SODIUM,PORCINE/PF 5,000 UNIT/0.5 ML SYRINGE SQ SCH ×2 (07:51→19:35)
[2020-11-13] MEDS ORDERED: LACTATED RINGERS 1,000 ML IV ONE (11:40)
[2020-11-13] MEDS ORDERED: MIDAZOLAM 2 MG/2 ML VIAL ONE (12:56)
[2020-11-13] MEDS ORDERED: PROPOFOL 10 MG/ML 20 ML VIAL IV ONE (12:56)
[2020-11-13] MEDS ORDERED: HYDROmorphone (PF) 1 MG/ML ONE (12:56)
[2020-11-13] MEDS ORDERED: KETOROLAC 15 MG/ML 1 ML VIAL ONE (12:56)
[2020-11-13] MEDS ORDERED: LIDOCAINE 1% INJ 10MG/ML (20 ML MDV) ONE (12:56)
[2020-11-13] MEDS ORDERED: fentaNYL (PF) 50 MCG/ML 2 ML AMP ONE (12:56)
[2020-11-13] MEDS ORDERED: SUCCINYLCHOLINE CHLORIDE 100 MG/5 ML SYR IV ONE (12:56)
[2020-11-13] MEDS ORDERED: NEOSTIGMINE 1 MG/ML 10 ML VIAL ONE (12:56)
[2020-11-13] MEDS ORDERED: ROCURONIUM 10 MG/ML (5 ML VIAL) IV ONE (12:56)
[2020-11-13] MEDS ORDERED: GLYCOPYRROLATE 0.2 MG/ML 2 ML VIAL ONE (12:56)
[2020-11-13] MEDS ORDERED: SODIUM CHLORIDE 0.9% 100 ML with ceFAZolin 2,000 MG IV ONE ×2 (13:28)
[2020-11-13] MEDS ORDERED: LIDOCAINE 1%-EPI 1:100,000 20 ML VIAL SQ ONE (13:29)
--- NOTE | 2020-11-13 13:42 | P.PN ---
Subjective Patient is a 35-year-old male with a known history of everyday smoker, marijuana use occasionally, history of renal stones and history of appendectomy presents to ER with the complaints of right upper quadrant abdominal pain for the past 2 days. On the first day patient felt sick and was having nausea and diarrhea. On the second day patient was having increasing pain along with diarrhea. Patient presented to ER for further evaluation. Pain has been constant stabbing type. Associate with nausea and vomiting and diarrhea. Denies any fever or chills. No cough or sputum production. No sick contacts or recent travel. Denied any unusual food intake. CT of the abdomen pelvis showed no acute findings to explain patient's abdominal pain. Ultrasound of the gallbladder showed sonographic positive De Los Santos sign. However there is no other signs of acute cholecystitis. Recommend correlation with physical exam and nuclear medicine HIDA scan. Lab data showed lipase level 597 bilirubin 0.4 liver enzymes are not elevated sodium 139 potassium 4.3 BUN 10 and creatinine 0.95 WBC 9.8 hemoglobin 17.4 and platelets 190 Urinalysis is negative for infection COVID-19 PCR not detected Patient has been afebrile. 11/12/2020 Patient is currently lying in bed still complaining of right upper quadrant pain. No fever no chills. Currently on pain management. HIDA scan showed hyperkinetic gallbladder with 82% ejection fraction. General surgery recommends cholecystectomy which is scheduled for tomorrow. 11/13/2020 This is a pleasant 35 years old male who presents with right upper quadrant abdominal pain and tenderness, workup including CT of the abdomen and ultrasounds of the gallbladder is unremarkable. However HIDA scan showing hyperkinetic bladder with ejection fraction of 82%. Surgery team on board and the recommended lap pranav this morning. Patient is awake and alert walking in the room with no difficulty. Complaining of from pain in the RUQ with tenderness. Vitals and labs are stable. Currently he is on normal saline 100 mL per hour Objective - Vital Signs Vital signs: Vital Signs Temp 97.3 F L 11/13/20 11:32 Pulse 49 L 11/13/20 11:32 Resp 17 11/13/20 11:32 BP 129/75 11/13/20 11:32 Pulse Ox 96 11/13/20 11:32 Intake & Output 11/12/20 11/13/20 11/13/20 18:59 06:59 18:59 Intake Total 800 100 Output Total 125 Balance 675 100 Intake: IV 100 Oral 800 Output: Urine 125 Other: Voiding Method Toilet Toilet # Voids 1 1 - Exam GENERAL: The patient is alert and oriented x3, not in any acute distress. Well developed, well nourished. HEENT: Pupils are round and equally reacting to light. EOMI. No scleral icterus. No conjunctival pallor. Normocephalic, atraumatic. No pharyngeal erythema. No thyromegaly. CARDIOVASCULAR: S1 and S2 present. No murmurs, rubs, or gallops. PULMONARY: Chest is clear to auscultation, no wheezing or crackles. -ABDOMEN: Soft, RUQ tenderness, nondistended, normoactive bowel sounds. No palpable organomegaly. MUSCULOSKELETAL: No joint swelling or deformity. EXTREMITIES: No cyanosis, clubbing, or pedal edema. NEUROLOGICAL: Gross neurological examination did not reveal any focal deficits. SKIN: No rashes. no petechiae. - Labs CBC & Chem 7: 11/11/20 06:17 11/11/20 06:17 Assessment and Plan Assessment: Right upper quadrant pain. Ultrasound no evidence of acute cholecystitis. HIDA scan Showed hyperkinetic gallbladder. With EF 82%.. Plan for laparoscopic cholecystectomy by surgery team History of nephrolithiasis Occasional marijuana use Currently everyday smoker History of appendectomy DVT prophylaxis with heparin subcu Plan: This is a pleasant 35 years old male with RUQ tenderness and hyperkinetic gallbladder previous surgery team on 4 and the plan for laparoscopic cholecystectomy planned today 11/13/2020 Labs and medication were reviewed.. Continue same treatment. Continue with symptomatic treatment. Resume home medication. Monitor lytes and vitals. DVT and GI prophylaxis. Further recommendationsas per clinical course of the patient DVT prophylaxis: Subcutaneous heparin GI Prophylaxis: Pepcid
--- NOTE | 2020-11-13 13:44 | P.OP ---
Date of Procedure: 11/13/20 Preoperative Diagnosis: Right upper quadrant pain Postoperative Diagnosis: Cholecystitis Procedure(s) Performed: Laparoscopic Cholecystectomy Anesthesia: JAMES Surgeon: Raul Bloom Estimated Blood Loss (ml): 5 Pathology: other Condition: stable Disposition: PACU Description of Procedure: The patient was placed on the operating table. The patient received a general endotracheal tube anesthesia. The patients abdomen was prepped and draped in the usual sterile fashion. Through an infraumbilical stab incision, the fascia of the anterior abdominal wall was grasped with a pair of Kochers and then the Veress needle was placed in the peritoneal cavity. Position of the Veress needle was confirmed with positive drop test. The abdomen was then insufflated. After adequate insufflation, the 10 mm trocar was placed in the peritoneal cavity. Following this the laparoscope was placed in the peritoneal cavity. The patient was placed in the head-up, right side up position and then a 5 mm trocar was placed in the right lateral and right subcostal position under direct visualization. A 8 mm trocar was placed in the epigastric position. The gallbladder was grasped in the fundus and infundibulum. Traction on the gallbladder was placed in the lateral and the cephalad positions. The triangle of Calot was visualized.. The cystic duct was bluntly dissected until the union of the cystic duct and common bile duct was seen. A critical view of safety was achieved. The cystic duct was then divided and sealed with the Harmonic scissors. A PDS Endoloop was then placed throughout the cystic duct stump. The cystic artery divided and sealed with the Harmonic scissors. The gallbladder was then removed from the liver bed using Harmonic scissors. The gallbladder was then extracted through the epigastric port site. Operative field was checked for any bleeding spots and Harmonic scissors was used to coagulate the liver bed. The abdomen was irrigated. The trocars were removed. The skin was closed using interrupted 3-0 Vicryl suture. Dermabond dressing were applied. The patient tolerated the procedure well.
[2020-11-13] MEDS: ONDANSETRON 4 MG/2 ML VIAL IVP PRN (15:59)
[2020-11-14] MEDS: HYDROmorphone 1 MG/ML 1 ML SYRINGE IVP PRN ×2 (02:05→08:04)
[2020-11-14] MEDS: SODIUM CHLORIDE 0.9% 1,000 ML IV SCH (05:23)
[2020-11-14 07:58] VITALS: BP 141/81; PULSE 42; RESP 18; TEMP 97.9
[2020-11-14] MEDS: HEPARIN SODIUM,PORCINE/PF 5,000 UNIT/0.5 ML SYRINGE SQ SCH (08:05)
[2020-11-14] MEDS: FAMOTIDINE 20 MG/2 ML VIAL IV SCH (08:05)
[2020-11-14] MEDS: NICOTINE 21MG/24HR PATCH TRANSDERM SCH (08:05)
[2020-11-14] MEDS ORDERED: HYDROcodone/APAP 5-325MG 1 EACH TAB PO PRN (08:06)
[2020-11-14 08:56] LABS: African American GFR (CKD) >90 (>60 ml/min/1.73 sqM); Anion Gap 3 mmol/L; Blood Urea Nitrogen 10 mg/dL (9-20); Calcium 8.5 mg/dL (8.4-10.2); Carbon Dioxide 32 mmol/L (22-30); Chloride 105 mmol/L (98-107); Glucose 81 mg/dL (74-99); Magnesium 1.8 mg/dL (1.6-2.3); Non-African American GFR(CKD) 85 (>60 ml/min/1.73 sqM); Potassium 4.2 mmol/L (3.5-5.1); Sodium 140 mmol/L (137-145)
--- NOTE | 2020-11-14 10:49 | CDI ---
Documentation Clarification Form Date: 11/14/2020 10:41:26 AM From: Amelia GtzJERED flowers, CCDS Admit Date: 11/13/2020 09:09:00 AM Patient Name: Odilon Sprague Visit Number: [id number] Discharge Date: ATTENTION: The Clinical Documentation Specialists (CDI) and [facility] Coding Staff appreciate your assistance in clarifying documentation. Please respond to the clarification below the line at the bottom and electronically sign. The CDI & [facility] Coding staff will review the response and follow-up if needed. Please note: Queries are made part of the Legal Health Record. If you have any questions, please contact the author of this message via ITS. Dr. Raul Bloom: On 11/13, the patient had a Laparoscopic Cholecystectomy, the Postoperative Diagnosis is Cholecystitis without further documented acuity. History/Risk Factors per the 11/11 H/P: Smoker, Occasional marijuana use, History of Appendectomy. Clinical Indicators: Presented to the ED with acute onset of RUQ abdominal pain. 11/10 US Gallbladder: Positive sonographic De Los Santos sign. However there are no other signs of acute cholecystitis. 11/10 CT Abdomen/Pelvis: No acute findings. 11/11 HIDA Scan: There is no focal liver defect. There is normal gallbladder ejection fraction of 82%. Treatment 11/10: IV Morphine 4mg x2, IV fluid bolus 2,000 mls @ 999 mls/hr q2H, IV Zofran, IV Dilaudid 1 mg x2, IV fluid 1,000 @ 100 mls/hr q10H, IV Pepcid. 11/13: Laparoscopic Cholecystectomy performed 11/13, IV Dilaudid, Can you please clarify the acuity of the patient's cholecystitis: [ ] Acute Cholecystitis [ ] Chronic Cholecystitis [ ] Acute on Chronic Cholecystitis ] ] Other, please specify [ ] Unable to determine (Template Last Revised: September 2020) Acute Cholecystitis MTDD
--- NOTE | 2020-11-14 11:39 | P.PN ---
Subjective Progress Note Date: 11/14/20 CHIEF COMPLAINT: Cholecystitis HISTORY OF PRESENT ILLNESS: Patient is status post laparoscopic cholecystectomy. He is reporting some upper abdominal pain. He denies any nausea or vomiting. Tolerated diet. Pain is controlled with pain medication. He's afebrile. He is having bowel movements. PHYSICAL EXAM: VITAL SIGNS: Reviewed. GENERAL: Well-developed in no acute distress. HEENT: No sclera icterus. Extraocular movements grossly intact. Moist buccal mucosa. Head is atraumatic, normocephalic. ABDOMEN: Soft. Nondistended. Tenderness in the upper abdomen. Incision sites minimal blood drainage noted. Patient's umbilical incision did have bleeding which is now stopped and dried. NEUROLOGIC: Alert and oriented. Cranial nerves II through XII grossly intact. ASSESSMENT: 1. Cholecystitis status post laparoscopic cholecystectomy 2. 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 Signing provider agrees with the documented findings, assessment, and plan of care. Objective - Vital Signs Vital signs: Vital Signs Temp 97.9 F 11/14/20 07:00 Pulse 42 L 11/14/20 07:00 Resp 18 11/14/20 07:00 BP 141/81 11/14/20 07:00 Pulse Ox 99 11/14/20 07:00 Intake & Output 11/13/20 11/14/20 11/14/20 18:59 06:59 18:59 Intake Total 650 800 Output Total 10 Balance 640 800 Intake: IV 650 Intake, IV Titration 800 Amount Sodium Chloride 0.9% 1, 800 000 ml @ 100 mls/hr IV . Q10H NICOLE Rx#:[id number] Output: Estimated Blood Loss 10 Other: Voiding Method Toilet Toilet Toilet # Voids 1 3 - Labs CBC & Chem 7: 11/11/20 06:17 11/14/20 07:16 Labs: Abnormal Lab Results - Last 24 Hours (Table) 11/14/20 Range/Units 07:16 Carbon Dioxide 32 H (22-30) mmol/L
[2020-11-14] MEDS ORDERED: FAMOTIDINE 20 MG TAB PO SCH (21:00)
--- NOTE | 2020-11-15 07:02 | P.DS ---
Providers Date of admission: 11/13/20 09:09 Attending physician: Kevin Nguyen MD Consults: 11/10/20 21:51 Consult Physician Urgent Consulting Provider: Raul Bloom Consult Reason/Comments: acute right upper quadrant pain Do you want consulting provider notified?: Yes Primary care physician: Stated None Hospital Course: Diagnoses: Right upper quadrant pain. Ultrasound no evidence of acute cholecystitis. HIDA scan Showed hyperkinetic gallbladder. With EF 82%.. Plan for laparoscopic cholecystectomy by surgery team Chronic symptomatic bradycardia, follow-up as an outpatient History of nephrolithiasis Occasional marijuana use Currently everyday smoker History of appendectomy Hospital course: This is a pleasant 35 years old male who presents with right upper quadrant abdominal pain and tenderness, workup including CT of the abdomen and ultrasounds of the gallbladder are unremarkable. However HIDA scan showing hyperkinetic bladder with ejection fraction of 82%. Surgery team on board and the recommended lap pranav which was done on 11/13, patient tolerated procedure well postoperatively patient was doing well with minimal or no pain. No nausea vomiting, tolerating his diet well, no chest pain or dyspnea. No fever, no other complaints, no dizziness or palpitation. Patient states his back to his baseline and he wants to go home today Patient has been evaluated and cleared by surgery team for discharge Also patient found to have asymptomatic bradycardia in the 40s, this is noticed also on previous admission on 08/2020. TSH is normal at 1.9, potassium and magnesium are within the reference range. Patient refused to see director of bands in-house and prefer to follow up as an outpatient Contact information for director of bands Dr. Alvarez is a provided for the patient and instructed to follow up with him in 7-10 days and he agrees to call and make his own appointment Problems and management plan were discussed with the patient and he verbalized understanding and acceptance Patient was found stable and can be discharged home however he needs follow-up as an outpatient. Patient was instructed to follow up with PCP within one week and patient agrees, patient states that he has no PCP, contact information for Dr. Clancy is provided with a recommendation: Make an appointment in 1 week, also has magallon instructed to call his medical insurance provider for him to near PCP. Also patient was instructed to follow up with surgeon Dr. Merida in 1-2 weeks and he agrees Physical exam Gen: patient is a AAOx3, no distress CVS: S1-S2, RRR, no murmur Lungs: B/L CTA, no wheezing -Abdomen: soft, no distention, no tenderness, positive bowel sounds.. Small wounds from laparoscopic cholecystectomy are closed and healing Extremity: no leg edema or induration Time spent more than 35 minutes Patient Condition at Discharge: Stable Plan - Discharge Summary Discharge Rx Participant: No New Discharge Prescriptions: New HYDROcodone/APAP 5-325MG [[place] 5-325] 1 tab PO Q6HR PRN 3 Days #12 tab PRN Reason: Pain Discharge Medication List HYDROcodone/APAP 5-325MG [[place] 5-325] 1 tab PO Q6HR PRN 3 Days #12 tab 11/14/20 [Rx] Follow up Appointment(s)/Referral(s): Jenny Larsen MD [REFERRING] - 1 Week (Please call to schedule your follow up appointment) None,Stated [Primary Care Provider] - 1-2 days (Please call your PCP to schedule your follow up appointment.) Dre Chavira MD [STAFF PHYSICIAN] - 10 Days (Contract Writer, for your low heart rate The office will call you with an appointment.) Raul Bloom MD [STAFF PHYSICIAN] - 11/23/20 4:00 pm Patient Instructions/Handouts: *Surgery [facility] - Laparoscopic Cholecystectomy Discharge Instructions Activity/Diet/Wound Care/Special Instructions: No driving while taking [place] No lifting over 10 pounds You may shower. No soaking or tub baths for 2 weeks Very light activity until you are reevaluated at your follow up appointment with your surgeon Discharge Disposition: HOME SELF-CARE
== END 2020-11-14 13:45 | disposition home or self-care (01) | DRG 419 ==
LOC: EC 17:50 → 6NMEDSUR 21:50 → OBSVTOIN 11-13 09:09
PROVIDERS: ADMIT Internal Medicine; ATTEND Internal Medicine
PROC: 0FT44ZZ Resection of Gallbladder, Percutaneous Endoscopic Approach (ICD-10-PCS; principal; 2020-11-13 09:25)
DX: K81.0 Acute cholecystitis (principal); F17.210 Nicotine dependence, cigarettes, uncomplicated; Z87.442 Personal history of urinary calculi; Z90.49 Acquired absence of other specified parts of digestive tract
CPT/HCPCS: 36415; 74177; 76705; 78226; 80048; 80053; 81003; 83605; 83690; 83735; 84443; 85025; 87635; 88304; 96361; 96374; 96375; 99285

== ENCOUNTER 2022-08-07 10:06 | Emergency (ER) | payer OTHER ==
[2022-08-07 10:11] VITALS: TEMP 98.2
[2022-08-07] MEDS ORDERED: HYDROmorphone 1 MG/ML 1 ML SYRINGE IVP STA (10:29)
[2022-08-07] MEDS ORDERED: ORPHENADRINE 30 MG/ML 2 ML VIAL IVP STA (10:29)
[2022-08-07] MEDS ORDERED: KETOROLAC 15 MG/ML 1 ML VIAL IVP STA (10:29)
[2022-08-07] MEDS ORDERED: methylPREDNISolone SOD SUCCI 125 MG/2 ML VIAL IV STA (10:29)
[2022-08-07] MEDS ORDERED: ONDANSETRON 4 MG/2 ML VIAL IVP STA (10:30)
--- NOTE | 2022-08-07 11:25 | XR ---
EXAM TYPE: LUMBAR SPINE X RAY SERIES COMPARISON: NONE HISTORY: Pain TECHNIQUE: 3 views are submitted. FINDINGS: Alignment is anatomic. The pedicles are intact. The transverse processes are intact. There is no spondylolisthesis. IMPRESSION: 1. No acute process.
--- NOTE | 2022-08-07 11:26 | XR ---
EXAMINATION TYPE: XR thoracic spine 2V DATE OF EXAM: 08/07/2022 COMPARISON: NONE HISTORY: Pain TECHNIQUE: 3 views submitted FINDINGS: Alignment is anatomic. There is no compression deformities. Mild hypertrophic and degenerative harrington e lower lobe thoracic spine. IMPRESSION: 1. Mild hypertrophic and degenerative lower thoracic spine.
[2022-08-07] MEDS ORDERED: HYDROmorphone 0.5 MG/0.5 ML SYRINGE IVP STA (12:10)
--- NOTE | 2022-08-07 12:21 | ED ---
Back Pain HPI - General Chief Complaint: Back Pain/Injury Stated Complaint: lower back pain Time Seen by Provider: 08/07/22 10:15 Source: patient, RN notes reviewed Mode of arrival: ambulatory Limitations: no limitations - History of Present Illness Initial Comments: 36-year-old male presents emergency Department chief complaint of back pain. Patient states it started overnight. Patient states that he did not have an injury that he knew of. 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 Patient denies any bowel, bladder incontinence or retention of service has no lower extremity paresthesias. Patient states she does have some pain radiating down his leg states he has no pain at rest any movement increases symptoms. No abdominal complaints. - Related Data Previous Rx's Medication Instructions Recorded HYDROcodone/APAP 5-325MG [[place] 5] 1 each PO Q6HR PRN #12 tab 08/07/22 Ibuprofen [Motrin] 600 mg PO Q8HR PRN #20 tab 08/07/22 Orphenadrine [Norflex] 100 mg PO Q12H #14 tab 08/07/22 predniSONE 50 mg PO DAILY #5 tab 08/07/22 Allergies Allergy/AdvReac Type Severity Reaction Status Date / Time No Known Allergies Allergy Verified 08/07/22 11:10 Review of Systems ROS Statement: Those systems with pertinent positive or pertinent negative responses have been documented in the HPI. ROS Other: All systems not noted in ROS Statement are negative. Past Medical History Past Medical History: No Reported History History of Any Multi-Drug Resistant Organisms: None Reported Past Surgical History: Appendectomy Past Psychological History: No Psychological Hx Reported Smoking Status: Vaper Past Alcohol Use History: Occasional Past Drug Use History: Marijuana - Past Family History Father Family Medical History: No Reported History General Exam Limitations: no limitations General appearance: alert, in no apparent distress Head exam: Present: atraumatic, normocephalic, normal inspection Eye exam: Present: normal appearance, PERRL, EOMI. Absent: scleral icterus, conjunctival injection, periorbital swelling ENT exam: Present: normal exam, mucous membranes moist Neck exam: Present: normal inspection, full ROM. Absent: tenderness, meningismus, lymphadenopathy Respiratory exam: Present: normal lung sounds bilaterally. Absent: respiratory distress, wheezes, rales, rhonchi, stridor Cardiovascular Exam: Present: regular rate, normal rhythm, normal heart sounds. Absent: systolic murmur, diastolic murmur, rubs, gallop, clicks GI/Abdominal exam: Present: soft, normal bowel sounds. Absent: distended, tenderness, guarding, rebound, rigid Extremities exam: Present: normal inspection, full ROM, normal capillary refill. Absent: tenderness, pedal edema, joint swelling, calf tenderness Back exam: Present: tenderness, muscle spasm, paraspinal tenderness. Absent: full ROM, vertebral tenderness Neurological exam: Present: alert, oriented X3, CN II-XII intact, reflexes normal. Absent: motor sensory deficit Course Vital Signs 08/07/22 08/07/22 10:09 10:45 Temperature 98.2 F Pulse Rate 74 76 Respiratory 20 18 Rate Blood Pressure 112/82 118/76 O2 Sat by Pulse 99 98 Oximetry Medical Decision Making - Medical Decision Making Was pt. sent in by a medical professional or institution (, PA, [employer], urgent care, hospital, or snf...) When possible be specific @ -No Did you speak to anyone other than the patient for history (EMS, parent, family, police, friend...)? What history was obtained from this source @ -No Did you review nursing and triage notes (agree or disagree)? Why? @ -I reviewed and agree with nursing and triage notes Were old charts reviewed (outside hosp., previous admission, EMS record, old EKG, old radiological studies, urgent care reports/EKG's, snf records)? Report findings @ -No old charts were reviewed Differential Diagnosis (chest pain, altered mental status, abdominal pain women, abdominal pain men, vaginal bleeding, weakness, fever, dyspnea, syncope, headache, dizziness, GI bleed, back pain, seizure, CVA, palpatations, mental health)? @ -Thoracic strain, lumbar strain, disc herniation, disc bulging, muscle spasm, listless is nonocclusive EKG interpreted by me (3pts min.). @ -None X-rays interpreted by me (1pt min.). @ -X-ray thoracic spine shows degenerative changes, x-ray lumbar spine is no acute osseous. No acute fracture or malalignment CT interpreted by me (1pt min.). @ -None done U/S interpreted by me (1pt. min.). @ -None done What testing was considered but not performed or refused? (CT, X-rays, U/S, labs)? Why? @ -MRI was considered though unable to completely emergency department and patient has no red flag symptoms he'll follow-up outpatient for MRI What meds were considered but not given or refused? Why? @ -None Did you discuss the management of the patient with other professionals (professionals i.e. DrMckinley, PA, [employer] P[employer], lab, RT, psych nurse, social welfare clerk, veterinarian helper, teacher, aboriginal liaison officer, heel caser)? Give summary @ -No Was smoking cessation discussed for >3mins.? @ -No Was critical care preformed (if so, how long)? @ -No Were there social determinants of health that impacted care today? How? (Homelessness, low income, unemployed, alcoholism, drug addiction, transportation, low edu. Level, literacy, decrease access to med. care, nursing home, rehab)? @ -No Was there de-escalation of care discussed even if they declined (Discuss DNR or withdrawal of care, Hospice)? DNR status @ -No What co-morbidities impacted this encounter? (DM, HTN, Smoking, COPD, CAD, Cancer, CVA, ARF, Chemo, Hep., AIDS, mental health diagnosis, sleep apnea, morbid obesity)? @ -None Was patient admitted / discharged? Hospital course, mention meds given and route, prescriptions, significant lab abnormalities, going to OR and other pertinent info. @ -hospital course Undiagnosed new problem with uncertain prognosis? @ -No Drug Therapy requiring intensive monitoring for toxicity (Heparin, Nitro, Insulin, Cardizem)? @ -No Were any procedures done? @ -No Diagnosis/symptom? @ -Back strain Acute, or Chronic, or Acute on Chronic? @ -acute Uncomplicated (without systemic symptoms) or Complicated (systemic symptoms)? @ -Uncomplicated Side effects of treatment? @ -No Exacerbation, Progression, or Severe Exacerbation? @ -No Poses a threat to life or bodily function? How? (Chest pain, [place], MS, pneumonia, PE, COPD, DKA, ARF, appy, cholecystitis, CVA, Diverticulitis, Homicidal, Suicidal, threat to staff... and all critical care pts) @ -No Diagnosis/symptom? @ -Back spasm Acute, or Chronic, or Acute on Chronic? @ -Acute Uncomplicated (without systemic symptoms) or Complicated (systemic symptoms)? @ -Uncomplicated Side effects of treatment? @ -none Exacerbation, Progression, or Severe Exacerbation] @ -no Poses a threat to life or bodily function? @ -no Disposition Clinical Impression: Thoracic back pain, Mid back pain, Mechanical back pain Disposition: HOME SELF-CARE Condition: Stable Instructions (If sedation given, give patient instructions): Back Pain (ED) Additional Instructions: Please return to the Emergency Department if symptoms worsen or any other conc erns. Prescriptions: Ibuprofen [Motrin] 600 mg PO Q8HR PRN #20 tab PRN Reason: Pain HYDROcodone/APAP 5-325MG [[place] 5] 1 each PO Q6HR PRN #12 tab PRN Reason: Pain Orphenadrine [Norflex] 100 mg PO Q12H #14 tab predniSONE 50 mg PO DAILY #5 tab Is patient prescribed a controlled substance at d/c from ED?: No Referrals: None,Stated [Primary Care Provider] - 1-2 days David Foote, [Doctor of Osteopathic Medicine] - 1-2 days Time of Disposition: 12:22
[2022-08-07 12:45] VITALS: BP 118/75; PULSE 51; RESP 16
== END 2022-08-07 12:45 | disposition home or self-care (01) ==
LOC: EC 10:06
DX: M54.6 Pain in thoracic spine (principal); F17.290 Nicotine dependence, other tobacco product, uncomplicated; F12.90 Cannabis use, unspecified, uncomplicated
CPT/HCPCS: 72070; 72100; 99283; 96374; 96375 ×5; 96376; J2360; J2930; J3360; J2405; J1170 ×2; J1885